=== PATIENT | female | born 1975 | race Two or more races ===

== ENCOUNTER 2024-02-14 15:42 | Inpatient (IN) | payer MEDICAID, OTHER ==
[~2024-02-14] VITALS: Ht 154.9 cm; Wt 89.0 kg
[2024-02-14 16:20] LABS: Basophils # (auto) 0.1 10 ^3/uL (0-0.2); Eosinophils # (auto) 0.5 10 ^3/uL (0-0.8); Monocytes # (auto) 0.6 10 ^3/uL (0-1.3); White Blood Cell 10.7 10^3/uL (4.4-10.8)
[2024-02-14 16:21] LABS: Basophils % (auto) 0.9 % (0.0-2.0); Eosinophils % (auto) 4.7 % (0.0-7.0); Hematocrit 35.5 % (36.0-46.0); Hemoglobin 11.7 g/dL (12.2-16.2); Lymphocytes # (auto) 2.6 10 ^3/uL (0.4-5.4); Lymphocytes % (auto) 24.2 % (10.0-50.0); Mean Corpuscular Hemoglobin 24.3 pg (28.0-32.0); Mean Corpuscular Hgb Conc. 32.9 g/dL (32.0-36.0); Monocytes % (auto) 5.2 % (0.0-12.0); Neutrophils # (auto) 6.9 10 ^3/uL (1.6-8.6); Nucleated Red Blood Cells % 0.1 %; Red Cell Distribution Width 16.4 % (11.8-14.3)
[2024-02-14 16:31] LABS: Alanine Aminotransferase 15 U/L (7-40); Albumin 4.8 g/dL (3.2-4.8); Alkaline Phosphatase 91 U/L (46-116); Anion Gap 10 (5-15); Aspartate Aminotransferase 8 U/L (13-40); BUN/Creatinine Ratio 15.7 (10.0-20.0); Blood Urea Nitrogen 16 mg/dL (9-23); Calcium 10.9 mg/dL (8.7-10.4); Carbon Dioxide 26 mmol/L (20-30); Chloride 103 mmol/L (98-107); Glucose 106 mg/dL (74-106); Potassium 3.4 mmol/L (3.5-5.1); Sodium 139 mmol/L (136-145)
[2024-02-14 16:32] LABS: Bilirubin, Total 0.8 mg/dL (0.2-1.0); Total Protein 7.7 g/dL (5.7-8.2)
[2024-02-14] MEDS: NITROGLYCERIN 0.4 MG SL TAB SL ONE (16:40)
[2024-02-14 16:41] VITALS: PULSE 103; RESP 19; O2SAT 96
[2024-02-14] MEDS: ASPirin 325 MG TAB PO ONE (16:41)
[2024-02-14] MEDS: MAALOX PLUS or MAALOX 30 ML PO ONE (17:48)
[2024-02-14] MEDS: LIDOCAINE VISCOUS 2% 15ML UD PO ONE (17:48)
[2024-02-14] MEDS: DONNATAL 5ml ORAL Elix (BELLADONNA ALK-PHENOBARB) PO ONE (17:48)
[2024-02-14] MEDS ORDERED: TEMAZEPAM 15 MG CAP PO PRN (18:45)
[2024-02-14] MEDS ORDERED: NITROGLYCERIN 0.4 MG SL TAB SL PRN (18:45)
[2024-02-14] MEDS ORDERED: MORPHINE SULFATE INJ 2 MG/ml SYRG IV PRN (18:45)
[2024-02-14] MEDS ORDERED: ONDANSETRON HCL 4 MG/2 ML VIAL IV PRN (18:45)
[2024-02-14 19:37] LABS: LDL Cholesterol 162 mg/dL (< 100); Triglycerides 366 mg/dL (< 150)
[2024-02-14 19:39] LABS: Cholesterol 234 mg/dL (< 200); HDL Cholesterol 32 mg/dL (40-59)
[2024-02-14 19:40] VITALS: PULSE 91; RESP 17; O2SAT 95
[2024-02-14] MEDS: POTASSIUM CHL 20 Meq TABLET PO ONE (20:02)
[2024-02-14 22:31] VITALS: O2SAT 95
[2024-02-14] MEDS ORDERED: LOSA-534 PO (23:19)
[2024-02-14] MEDS ORDERED: HYDR25TA4 PO (23:19)
[2024-02-14] MEDS ORDERED: LEVO175T2 PO (23:19)
[2024-02-14] MEDS: ACETAMINOPHEN 325 MG TAB PO PRN (23:28)
[2024-02-15] VITALS (8 sets, daily range): BP systolic 125–149; BP diastolic 68–83; PULSE 73–92; RESP 14–20; TEMP 97.4–98.5; O2SAT 94–98
[2024-02-15] MEDS: LEVOTHYROXINE SODIUM 50 MCG TAB PO SCH (05:47)
[2024-02-15] MEDS: ASPirin 81 mg TAB PO SCH (09:23)
[2024-02-15] MEDS: LOSARTAN POTASSIUM 50 MG TAB PO SCH (09:24)
[2024-02-15] MEDS: hydroCHLOROthiazide 25 MG TAB PO SCH (09:24)
[2024-02-15] MEDS: CALCIUM CARB 500 MG CHEW TAB PO PRN (09:30)
[2024-02-15] MEDS: POTASSIUM CHL 20 Meq TABLET PO ONE (11:51)
[2024-02-15 15:51] LABS: Urine Bacteria None Seen /hpf (None Seen)
[2024-02-15 16:02] LABS: Urine Blood Negative /uL (Negative); Urine Clarity Clear (Clear); Urine Color Light-Yellow (Yellow); Urine Protein, UAD Negative (Negative); Urine Specific Gravity 1.015 (1.001-1.035); Urine Urobilinogen Normal (Negative); Urine WBC <1 /hpf (0 - 5)
[2024-02-15 16:14] LABS: Amphetamine Screen, Urine Neg (NEGATIVE); Barbiturate Scree,Urine Neg (NEGATIVE); Benzodiazephine Screen, Urine Neg (NEGATIVE); Cocaine Screen, Urine Neg (NEGATIVE); Opiate Scree,Urine Neg (NEGATIVE)
[2024-02-15 16:15] LABS: Cannabinoid Screen, Urine Neg (NEGATIVE); Phencyclidine Screen, Urine Neg (NEGATIVE)
[2024-02-15] MEDS: PANTOPRAZOLE 40 MG TAB PO SCH (18:32)
[2024-02-15] MEDS: traMADol HCL 50 MG TAB PO ONE (19:57)
[2024-02-15] MEDS: diphenhdrAMINE HCL 25 MG CAP PO ONE (19:58)
[2024-02-15] MEDS: ATORVASTATIN 20 MG TAB PO SCH (21:24)
[2024-02-16] VITALS (7 sets, daily range): BP systolic 108–152; BP diastolic 53–83; PULSE 76–93; RESP 17–20; TEMP 97.8–98.2; O2SAT 95–98
[2024-02-16 06:39] LABS: Basophils # (auto) 0.1 10 ^3/uL (0-0.2); Basophils % (auto) 0.8 % (0.0-2.0); Eosinophils # (auto) 0.5 10 ^3/uL (0-0.8); Eosinophils % (auto) 6.6 % (0.0-7.0); Hematocrit 34.9 % (36.0-46.0); Hemoglobin 11.4 g/dL (12.2-16.2); Lymphocytes # (auto) 1.9 10 ^3/uL (0.4-5.4); Lymphocytes % (auto) 23.5 % (10.0-50.0); Mean Corpuscular Hemoglobin 24.5 pg (28.0-32.0); Mean Corpuscular Hgb Conc. 32.5 g/dL (32.0-36.0); Mean Corpuscular Volume 75.2 fL (80.0-100.0); Monocytes # (auto) 0.4 10 ^3/uL (0-1.3); Monocytes % (auto) 4.8 % (0.0-12.0); Neutrophils # (auto) 5.2 10 ^3/uL (1.6-8.6); Neutrophils % (auto) 64.3 % (37.0-80.0); Nucleated Red Blood Cells % 0.1 %; Red Blood Cells 4.64 10^6/uL (4.0-5.20); Red Cell Distribution Width 16.3 % (11.8-14.3); White Blood Cell 8.1 10^3/uL (4.4-10.8)
[2024-02-16 06:48] LABS: Anion Gap 8 (5-15); Carbon Dioxide 27 mmol/L (20-30); Chloride 102 mmol/L (98-107); Potassium 3.4 mmol/L (3.5-5.1); Sodium 137 mmol/L (136-145)
[2024-02-16 06:54] LABS: BUN/Creatinine Ratio 18.2 (10.0-20.0); Blood Urea Nitrogen 16 mg/dL (9-23); Glucose 107 mg/dL (74-106)
[2024-02-16] MEDS ORDERED: PANT40T PO (08:46)
[2024-02-16] MEDS ORDERED: ATOR20TA50 PO (08:46)
[2024-02-16 11:09] LABS: Free T3 3.32 pg/mL (2.3-4.2)
[2024-02-16 11:10] LABS: Free T4 (Free Thyroxine) 1.85 ng/dL (0.89-1.76)
== END 2024-02-16 12:24 | disposition home or self-care (01) | DRG 243 ==
LOC: ER 15:50 → TELE-E-ADS 18:42 → TELE 18:42 → TELE-E-ADS 22:10
PROVIDERS: ADMIT Internal Medicine Pulmonary Disease; ATTEND Internal Medicine Pulmonary Disease
DX: K21.9 Gastro-esophageal reflux disease without esophagitis (principal); E03.9 Hypothyroidism, unspecified; E87.6 Hypokalemia; I10 Essential (primary) hypertension; E78.5 Hyperlipidemia, unspecified; Z79.899 Other long term (current) drug therapy
CPT/HCPCS: 36415; 71045; 80048; 80053; 80061; 80307; 81001; 83036; 83880; 84439; 84443; 84481; 84484; 85025; 93005; 93306; G0378